=== PATIENT | female | born 1935 | race Caucasian/White ===

== ENCOUNTER 2025-06-21 18:47 | Inpatient (IN) | payer OTHER ==
[2025-06-21] MEDS ORDERED: METOCLOPRAMIDE 10 MG/2mL INJ ONE (19:35)
[2025-06-21] MEDS ORDERED: PANTOPRAZOLE 40 MG INJ ONE (19:36)
[2025-06-21] MEDS ORDERED: FAMOTIDINE 20 MG/2 ML VIAL IV ONE (19:36)
[2025-06-21] MEDS ORDERED: DIAZEPAM 10 MG/2 ML INJ SYRINGE ONE (19:36)
[2025-06-21] MEDS ORDERED: NA CHLORIDE 0.9% 100 ML ONE (19:36)
[2025-06-21] MEDS ORDERED: GLUCAGON 1 MG/VIAL ONE (19:37)
[2025-06-21 19:41] LABS: Absolute Lymphocytes (CBC) 0.8 K/uL (0.7-4.9); Hematocrit 34.7 % (36.0-45.0); Hemoglobin 12.1 g/dL (12.0-15.0); MCH 30.3 pg (27.0-35.0); MCHC 35.0 g/dL (32.0-36.0); MCV 86.7 fL (80-100); MPV 6.8 fL (7.6-11.3); Nucleated RBC Absolute Count 0.0 (0-0); Nucleated Red Blood Cells % 0.0 % (0-0); RBC Red Blood Cell Count 4.00 M/uL (3.86-4.86); White Blood Count 7.10 thou/uL (4.3-10.9)
[2025-06-21 20:07] LABS: ALT/SGPT 45.0 U/L (13-56); Albumin 3.2 g/dL (3.4-5.0); Albumin/Globulin Ratio 0.8 (1.1-1.8); Alkaline Phosphatase 67.0 U/L (45-117); Anion Gap 15.7 mEq/L (5.0-15.0); BUN Blood Urea Nitrogen 25.0 mg/dL (7-18); Globulin 4.2 g/dL (2.3-3.5); Glucose Level 128.0 mg/dL (74-106)
[2025-06-21 20:08] LABS: AST/SGOT 44.0 U/L (15-37); Potassium 4.7 mEq/L (3.5-5.1)
--- NOTE | 2025-06-21 20:25 | RAD REPORT ---
EXAM: CT Soft Tissue Neck Wo Contr INDICATION: [facility] MAIN Non contrast CT Bed Name: 8 TECHNIQUE: Helical CT examination of the neck without IV contrast. Sagittal and coronal reformations were generated. This exam was performed according to our departmental dose-optimization program, which includes automated exposure control, adjustment of the mA and/or kV according to patient size a nd/or use of iterative reconstruction technique. COMPARISON: None. FINDINGS: Noncontrast technique limits evaluation. Osseous Structures: Chronic appearing type I odontoid fracture, with corticated margins. Posterior a ngulation of the dens fragment, with angle measuring 29 degrees, with a degree of retrolisthesis measuring 5 mm. Surrounding degenerative pannus which exerts mild mass effect upon the craniocervical junction. Mucosal spaces: Nasopharynx, oropharynx, oral cavity, larynx and hypopharynx are normal. No suspiciou s masses. Epiglottis is normal in configuration. True vocal cords cords are normally situated. Piriform sinuses are well-aerated. Lymph Nodes: No pathologic appearing cervical lymph nodes. Salivary Glands: Unremarkable. Thyroid Gland: Normal Included Intracranial Structures: Normal Included Orbits: Normal Paranasal Sinuses: Predominantly clear Tympanomastoid Cavities: Normal Vascular Structures: Normal Included Lung Apices: Left upper lobe cystic lesion measuring 4.2 x 2.6 cm, better evaluated on CT ch est of the same day. IMPRESSION: No suspicious masses or adenopathy throughout the neck. Chronic appearing type I odontoid fracture, with posterior angulation and retrolisthesis and dense fr agment.
[2025-06-21] MEDS ORDERED: NA CHLORIDE 0.9% 1,000 ML ONE (20:28)
[2025-06-21] MEDS ORDERED: NA CHLORIDE 0.9% 500 ML ONE (20:29)
--- NOTE | 2025-06-21 20:31 | RAD REPORT ---
EXAMINATION: CT Thorax Wo Con CLINICAL INDICATION: Female, 89 years old. acute esophageal obstruction TECHNIQUE: Axial CT scan of the chest without intravenous contrast. Multiplanar reformats were genera kristopher and reviewed. One or more of the following dose reduction techniques were used: Automated exposure control, adjustment of the mA and/or kV according patient size, and/or iterative reconstruct ion. Unless otherwise specified, incidental findings do not require dedicated imaging follow-up. COMPARISON: No prior exam. FINDINGS: LOWER NECK: Visualized thyroid gland and soft tissues are normal. LUNGS: Cystic lesion with nodular irregularly thickened wall and septation, within the left upper lob e, based upon the upper aspect of the major fissure, measuring 4.7 x 3.4 x 5.6 cm in greatest transverse, AP, and CC dimensions. Patchy consolidative and groundglass opacities in the dependent le ft lower lobe. No other suspicious nodules. PLEURA: No pleural effusion. No pneumothorax. . MEDIASTINUM AND LYMPH NODES: No mediastinal mass or fluid collection. Normal size mediastinal, hilar, and axillary lymph nodes. Mild pericardial effusion. OSSEOUS STRUCTURES AND CHEST WALL: Intact. UPPER ABDOMEN: No significant abnormalities. IMPRESSION: Patchy airspace opacities in the dependent left lower lobe. These are concerning for pneumonitis. Cystic left upper lobe pleural-based mass measuring up to 5.6 cm, could be postinfectious although ne oplastic etiology cannot be entirely excluded. Correlation with prior imaging if available is recommended. Pulmonology consultation also recommended.
[2025-06-21] MEDS ORDERED: NACHLORIDE 0.45% 1,000 ML IV ONE (22:35)
[2025-06-21] MEDS ORDERED: ONDANSETRON 4 MG/2 ML VIAL IV PRN (22:41)
[2025-06-21] MEDS ORDERED: ACETYLCYST 20% 4 ML VIAL IH PRN (22:48)
--- NOTE | 2025-06-21 22:52 | P.HP ---
Certification for Inpatient Patient admitted to: Inpatient With expected LOS: >2 Midnights Patient will require the following post-hospital care: None Practitioner: I am a practitioner with admitting privileges, knowledge of patient current condition, hospital course, and medical plan of care. Services: Services provided to patient in accordance with Admission requirements found in Title 42 Section 412.3 of the Code of Federal Regulations Patient History Date of Service: 06/21/25 Reason for admission: Hyponatremia, PASTORA. History of Present Illness: Patient is an 89-year-old female with past medical history of atrial fibrillation currently on Eliquis 2.5 mg p.o. twice daily, recently diagnosed upper respiratory infection and completed Z-Dom, started the Z-Dom last week Thursday, and completed on Thursday, type 2 diabetes mellitus, essential hypertension. Patient brought to ER today complaining of choking after eating, and states she feels like there is an item of food stuck in her throat. Patient denies of any chest pain, shortness of breath, or abdominal pain. On admission assessment, patient with increased bilateral pulmonary congestion, nonproductive cough. Patient bilateral lungs with increased pulmonary congestion, with some crackles and rhonchi which appears to have been the residual from her recent diagnosis of upper respiratory infection. Patient with left shift of 77.1, normal WBC. BUN 25. Incidental finding of sodium 118. Course in ER: (1)CT soft tissue neck without contrast. Impression: No suspicious masses or adenopathy throughout the neck. Chronic appearing type I odontoid fracture, with posterior angulation and retrolisthesis and dens fragment. (2) CT thorax without contrast. Impression: Patchy airspace opacities in the dependent left lower lobe. These are concerning for pneumonitis. Cystic left upper lobe pleural-base mass measuring up to 5.6 cm, could be postinfectious although neoplastic etiology cannot be entirely excluded. Correlation with prior imaging if available is recommended. Pulmonary consultation is also recommended. Allergies No Known Allergies Allergy (Unverified 06/21/25 23:18) Home Medications: Albuterol Neb [Proventil 0.083% Neb Soln] 3 ml NEB DAILY 06/22/25 Albuterol Sulfate [Proair Hfa] 2 puff IN BID 06/22/25 Apixaban [Eliquis] 2.5 mg PO BID 06/22/25 Choline/Lutein/Zeaxan/Astaxan [Maculapf Softgel] 1 each PO DAILY 06/22/25 Ferrous Sulfate [Iron] 325 mg PO DAILY 06/22/25 Lisinopril [Zestril] 5 mg PO DAILY 06/22/25 Metformin HCl 1,000 mg PO DAILY 06/22/25 Multivit-Min/Iron/Folic/Lutein [Centrum Silver Women Tablet] 1 each PO DAILY 06/22/25 Potassium Chloride 10 meq PO DAILY PRN 06/22/25 Vitamin B Complex 1 each PO DAILY 06/22/25 Amox/Clavulanate [Augmentin 875-125 Tab*] 875 mg PO BID 5 Days #10 tab 06/25/25 Furosemide [Lasix] 20 mg PO DAILY PRN 30 Days #30 tab 06/25/25 Sodium Chloride Tab [Sodium Chloride*] 2 gm PO BID 30 Days #60 tab 06/25/25 Urea [Ure-Na] 15 gm PO DAILY 30 Days #1 box 06/25/25 - Past Medical/Surgical History -: Upper respiratory infection. -: Atrial fibrillation. -: Type 2 diabetes mellitus. -: Essential hypertension. Past Surgical History: Reviewed- Non-Contributory - Family History Mother -: Lung disease Notes: Emphysema Father -: Stroke, Other (see notes) Notes: DM - Social History Smoking Status: Former smoker Alcohol use: No CD- Drugs: No Caffeine use: Yes Place of Residence: Home Review of Systems 10-point ROS is otherwise unremarkable Respiratory: Cough (Nonproductive cough.), Other (Increased bilateral pulmonary congestion) Neurological: Weakness Physical Examination - Physical Exam General: Alert, Oriented x3, Cooperative HEENT: Atraumatic, Normocephalic, PERRLA, Mucous membr. moist/pink, Sclerae nonicteric Neck: Supple, 2+ carotid pulse no bruit, No LAD, Without JVD or thyroid abnormality Respiratory: Diminished, Other (Bilateral pulmonary congestion/cough) Cardiovascular: No edema, Normal pulses, No gallops, No rubs, No murmurs, Irregular heart rate/rhythm (Regular to irregular.) Capillary refill: <2 Seconds Gastrointestinal: Normal bowel sounds, Soft and benign, W/out hepatomegaly, No ascites, No tenderness, No masses, No rebound, No guarding Musculoskeletal: No clubbing, No swelling, No contractures, No erythema, No tenderness, No warmth Integumentary: No breakdown, No significant lesion, No tenderness/swelling, No warmth, No cyanosis Neurological: Normal speech, Normal strength at 5/5 x4 extr, Normal tone, Sensation intact, Normal reflexes 2+, Normal affect Lymphatics: No axilla or inguinal lymphadenopathy - Studies Laboratory Data (last 24 hrs) 06/21/25 06/21/25 19:33 19:33 WBC 7.10 Hgb 12.1 Hct 34.7 L Plt Count 273 Sodium 118 L* Potassium 4.7 BUN 25 H Creatinine 0.74 Glucose 128 H Total Bilirubin 0.4 AST 44 H ALT 45 Alkaline Phosphatase 67 Female Exam - Breasts Breasts: Normal configuration Assessment and Plan - Plan Patient is an 89-year-old female who initially reported to the ER due to choking after eating, and thought there was an item stuck in her esophagus. CT impression no foreign body noted in patient esophagus. Incidental finding of sodium 118, with PASTORA. (1)Hyponatremia of 118/ PASTORA. Patient initially was started on IV NS in the ER. -Order 1/2 NS at 50 mL/ hr. The goal is to gradually increase patient sodium and not rapidly increased due to the risk potential cerebral edema. -Order follow-up CMP in the morning. (2)Chronic type 2 diabetes mellitus. -Order A1c. -Moderate sliding scale coverage/ACHS.. (3)Chronic atrial fibrillation. -Continue on Eliquis 2.5 mg p.o. twice daily. (4)Increased pulmonary congestion and nonproductive cough. Patient recently diagnosed with upper respiratory infection and completed course of Z-Dom, and appears to be residual symptoms,but patient has a left shift. -Order Levaquin 250 mg daily dose adjusted by pharmacy. (5)Explained the entire treatment plan to the patient, and family present at bedside, solicit questions answered and voiced understanding. Discharge Plan: Home Plan to discharge in: 72 Hours - Advance Directives Does patient have a Living Will: No Does patient have a Durable POA for Healthcare: No - Code Status/Comfort Care Code Status: Full Code Critical Care: No Time Spent Managing Pts Care (In Minutes): 55
[2025-06-22] MEDS ORDERED: IPRATROPIUM BROM 0.5MG/2.5ML ONE (00:45)
[2025-06-22] MEDS ORDERED: ALBUTEROL 2.5 MG/3 ML NEB SOL ONE (00:45)
--- NOTE | 2025-06-22 00:56 | EDPHYS ---
Physician Documentation [facility] Name: Heather Taylor Age: 89 yrs Sex: Female : 1935 Arrival Date: 06/21/2025 Time: 18:47 Bed 8 Private MD: ED Physician Lauri Cespedes HPI: 06/21 19:12 This 89 yrs old Female presents to ER via Unassigned with complaints of sp4 Choked/Choking. 19:20 89-year-old female presents after acute choking on a hot dog and some other food at sp4 home. Occurring 1 hour ago. Patient reports she could not swallow at first and now she is able to swallow some and tolerated some soda. Patient reports significant discomfort choking cough and sputum production. No previous esophageal obstruction.. Historical: - Allergies: 19:42 No Known Allergies; ph - Home Meds: 19:42 Unable to obtain [Active]; ph - PMHx: 19:42 Diabetes mellitus; ph - PSHx: 19:42 Unable to Obtain; ph - Immunization history:: Adult Immunizations up to date. - Infectious Disease History:: Denies. - Social history:: Smoking status: Patient denies any tobacco usage or history of. Patient/guardian denies using alcohol, street drugs. ROS: 19:21 Constitutional: Negative for fever, chills, and weight loss, positive acute choking sp4 positive acute dysphagia positive sputum salivation and throat discomfort. 19:21 All other systems are negative, Exam: 19:21 Constitutional: Thin frail elderly female, significant discomfort, significant sputum sp4 production, coughing on examination. Head/Face: Normocephalic, atraumatic. Eyes: Pupils equal round and reactive to light, extra-ocular motions intact. Lids and lashes normal. Conjunctiva and sclera are not injected. Cornea within normal limits. Periorbital areas with no swelling, redness, or edema. ENT: Nares patent. No nasal discharge, no septal abnormalities noted. Tympanic membranes are normal and external auditory canals are clear. Oropharynx with no redness, swelling, or masses, exudates, or evidence of obstruction, uvula midline. Mucous membranes moist. Neck: Trachea midline, no thyromegaly or masses palpated, and no cervical lymphadenopathy. Supple, full range of motion without nuchal rigidity, or vertebral point tenderness. Chest/axilla: Normal chest wall appearance and motion. Nontender with no deformity. No lesions are appreciated. Cardiovascular: Regular rate and rhythm with a normal S1 and S2. No gallops, murmurs, or rubs. No pulse deficits. Respiratory: Lungs have equal breath sounds bilaterally, clear to auscultation and percussion. No rales, rhonchi or wheezes noted. No increased work of breathing, no retractions or nasal flaring. Abdomen/GI: Soft, with normal bowel sounds. No distension or tympany. No guarding or rebound. No evidence of tenderness throughout. Back: No spinal tenderness. No costovertebral tenderness. Skin: Warm, dry with normal turgor. Normal color with no rashes, no lesions, and no evidence of cellulitis. MS/ Extremity: Pulses equal, no cyanosis. Neurovascular intact. Full, normal range of motion. Neuro: Awake and alert, GCS 15, oriented to person, place, time, and situation. Cranial nerves II-XII grossly intact. Motor strength 5/5 in all extremities. Sensory grossly intact. Psych: Awake, alert, with orientation to person, place and time. Behavior, mood, and affect are within normal limits Vital Signs: 19:00 BP 133 / 67; Pulse 84; Resp 18; Temp 97.1; Pulse Ox 95% ; Pain 5/10; ph 19:59 BP 116 / 56; Pulse 81; Resp 18; Temp 97.1; Pulse Ox 96% on 2 lpm NC; Pain 0/10; ph 20:40 BP 116 / 56; Pulse 75; Resp 17; Temp 97.1; Pulse Ox 97% ; Pain 0/10; bm8 21:36 BP 117 / 66; Pulse 77; Resp 18; Temp 97.1; Pulse Ox 98% ; Pain 0/10; bm8 22:57 BP 118 / 60; Pulse 69; Resp 18; Temp 97.2; Pulse Ox 98% on 2 lpm NC; Pain 0/10; bm8 06/22 00:50 BP 128 / 67; Pulse 69; Resp 18; Temp 97.5; Pulse Ox 94% ; Pain 0/10; bm8 06/21 19:00 Pain Scale: Adult ph 19:59 Pain Scale: Adult ph 20:40 Pain Scale: Adult bm8 21:36 Pain Scale: Adult bm8 22:57 Pain Scale: Adult bm8 06/22 00:50 Pain Scale: Adult bm8 Myah Coma Score: 06/21 19:21 Eye Response: spontaneous(4). Motor Response: obeys commands(6). Verbal Response: sp4 oriented(5). Total: 15. 19:44 Eye Response: spontaneous(4). Motor Response: obeys commands(6). Verbal Response: ph oriented(5). Total: 15. 19:59 Eye Response: to pain(2). Motor Response: localizes pain(5). Verbal Response: ph confused(4). Total: 11. 20:40 Eye Response: spontaneous(4). Motor Response: obeys commands(6). Verbal Response: bm8 oriented(5). Total: 15. 21:36 Eye Response: spontaneous(4). Motor Response: obeys commands(6). Verbal Response: bm8 oriented(5). Total: 15. 06/22 00:50 Eye Response: spontaneous(4). Motor Response: obeys commands(6). Verbal Response: bm8 oriented(5). Total: 15. MDM: 06/21 20:17 Medical Screening Exam initiated sp4 20:37 ED course: EXAMINATION: CT Thorax Wo Con CLINICAL INDICATION: Female, 89 years old. sp4 acute esophageal obstruction TECHNIQUE: Axial CT scan of the chest without intravenous contrast. Multiplanar reformats were generated and reviewed. One or more of the following dose reduction techniques were used: Automated exposure control, adjustment of the mA and/or kV according patient size, and/or iterative reconstruction. Unless otherwise specified, incidental findings do not require dedicated imaging fo llow-up. COMPARISON: No prior exam. FINDINGS: LOWER NECK: Visualized thyroid gland and soft tissues are normal. LUNGS: Cystic lesion with nodular irregularly thickened wall and septation, within the left upper lobe, based upon the upper aspect of the major fissure, measuring 4.7 x 3.4 x 5.6 cm in greatest transverse, AP, and CC dimensions. Patchy consolidative and groundglass opacities in the dependent left lower lobe. No other suspicious nodules. PLEURA: No pleural effusion. No pneumothorax. . MEDIASTINUM AND LYMPH NODES: No mediastinal mass or fluid collection. Normal size mediastinal, hilar, and axillary lymph nodes. Mild pericardial effusion. OSSEOUS STRUCTURES AND CHEST WALL: Intact. UPPER ABDOMEN: No significant abnormalities. IMPRESSION: Patchy airspace opacities in the dependent left lower lobe. These are concerning for pneumonitis. Cystic left upper lobe pleural-based mass measuring up to 5.6 cm, could be postinfectious although neoplastic etiology cannot be entirely excluded. Correlation with prior imaging if available is recommended. Pulmonology consultation also recommended.. ED course: RADIOLOGYSERVICES REPORT Name: NELLIE TAYLOR Acct Number: [id number] :1935 Age:89 Sex:F Ord Phys: Lauri Cespedes MD Unit Number: [id number] [facility] Care Dr: NONE Status: REG ER ER Exam Date: 06/21/25 EXAM: CT Soft Tissue Neck Wo Contr INDICATION: [facility] MAIN Non contrast CT Bed Name: 8 TECHNIQUE: Helical CT examination of the neck without IV contrast. Sagittal and coronal reformations were generated. This exam was performed according to our departmental dose-optimization program, which includes automated exposure control, adjustment of the mA and/or kV according to patient size and/or use of iterative reconstruction technique. COMPARISON: None. FINDINGS: Noncontrast technique limits evaluation. Osseous Structures: Chronic appearing type I odontoid fracture, with corticated margins. Posterior angulation of the dens fragment, with angle measuring 29 degrees, with a degree of retrolisthesis measuring 5 mm. Surrounding degenerative pannus which exerts mild mass effect upon the craniocervical junction. Mucosal spaces: Nasopharynx, oropharynx, oral cavity, larynx and hypopharynx are normal. No suspicious masses. Epiglottis is normal in configuration. True vocal cords cords are normally situated. Piriform sinuses are well-aerated. Lymph Nodes: No pathologic appearing cervical lymph nodes. Salivary Glands: Unremarkable. Thyroid Gland: Normal Included Intracranial Structures: Normal Included Orbits: Normal Paranasal Sinuses: Predominantly clear Tympanomastoid Cavities: Normal Vascular Structures: Normal Included Lung Apices: Left upper lobe cystic lesion measuring 4.2 x 2.6 cm, better evaluated on CT chest of the same day. IMPRESSION: No suspicious masses or adenopathy throughout the neck. Chronic appearing type I odontoid fracture, with posterior angulation and retrolisthesis and dense fragment. . 20:47 ED course: CT neck - COMPARISON: None. FINDINGS: Noncontrast technique limits sp4 evaluation. Osseous Structures: Chronic appearing type I odontoid fracture, with corticated margins. Posterior angulation of the dens fragment, with angle measuring 29 degrees, with a degree of retrolisthesis measuring 5 mm. Surrounding degenerative pannus which exerts mild mass effect upon the craniocervical junction. Mucosal spaces: Nasopharynx, oropharynx, oral cavity, larynx and hypopharynx are normal. No suspicious masses. Epiglottis is normal in configuration. True vocal cords cords are normally situated. Piriform sinuses are well-aerated. Lymph Nodes: No pathologic appearing cervical lymph nodes. Salivary Glands: Unremarkable. Thyroid Gland: Normal Included Intracranial Structures: Normal Included Orbits: Normal Paranasal Sinuses: Predominantly clear Tympanomastoid Cavities: Normal Vascular Structures: Normal Included Lung Apices: Left upper lobe cystic lesion measuring 4.2 x 2.6 cm, better evaluated on CT chest of the same day. 21:33 ED course: CT revealed no signs of esophageal food impaction.. sp4 21:34 Differential diagnosis: Anxiety Reaction asthma, Bronchitis CHF exacerbation, Chronic sp4 Obstructive Pulmonary Disease pneumonia. Data reviewed: vital signs, nurses notes, EMS record, lab test result(s), EKG, radiologic studies, plain films. 06/22 01:14 ED course: Hyponatremia will be treated with saline infusion in ICU. Left upper lung sp4 cystic lesion --we have advised patient's family to have a follow-up with remodeler at her town. I recommended repeat CT in 6 to 12 months. Chronic odontoid process fracture -advised follow-up with neurosurgery. Additionally advised fall prevention at home.. 06/21 19:20 Order name: CBC with Diff; Complete Time: 20:17 sp4 06/21 19:20 Order name: CMP sp4 06/21 20:45 Order name: Urine Creatinine sp4 06/21 20:45 Order name: Urine Osmolality sp4 06/21 20:45 Order name: Urine Sodium Random sp4 06/21 20:45 Order name: Urine Potassium Random sp4 06/21 20:45 Order name: UA W/ Microscopic sp4 06/22 00:57 Order name: CBC with Automated Diff EDMS 06/22 00:57 Order name: CBC with Automated Diff EDMS 06/22 00:57 Order name: CBC with Automated Diff EDMS 06/22 00:57 Order name: Comprehensive Metabolic Panel EDMS 06/22 00:57 Order name: Comprehensive Metabolic Panel EDMS 06/22 00:57 Order name: Comprehensive Metabolic Panel EDMS 06/22 00:57 Order name: Magnesium EDMS 06/22 00:57 Order name: Magnesium EDMS 06/22 00:57 Order name: Magnesium EDMS 06/21 19:20 Order name: CT Chest Wo Con sp4 06/21 19:28 Order name: Soft Tissue Neck Wo Contr EDMS 06/21 19:19 Order name: NPO; Complete Time: 19:46 sp4 06/21 19:20 Order name: IV Saline Lock; Complete Time: 19:46 sp4 06/21 19:20 Order name: Labs collected and sent; Complete Time: 19:46 sp4 Administered Medications: 06/21 22:56 Discontinued: ns 0.9% 1000 ml IV at 125 ml/hr once; to be given as a bolus over 60 bm8 minutes 19:58 Drug: Famotidine IVP 20 mg IVP once; dilute with 10 mL 0.9% NaCl; give over 2 minutes ph Route: IVP; Site: right forearm; 21:37 Follow up: Response: No adverse reaction bm8 19:59 Drug: Glucagon IVP 1 mg IVP once Route: IVP; Site: right forearm; ph 21:38 Follow up: Response: No adverse reaction bm8 19:59 Drug: Diazepam IVP 2 mg IVP once Route: IVP; Site: right forearm; ph 21:38 Follow up: Response: No adverse reaction bm8 19:59 Drug: metoCLOPramide IVP 10 mg IVP once; over 1 to 2 minutes Route: IVP; Site: right ph forearm; 21:38 Follow up: Response: No adverse reaction bm8 19:59 Drug: Pantoprazole IVP 40 mg IVP once Route: IVP; Site: right forearm; ph 21:38 Follow up: Response: No adverse reaction bm8 20:40 Drug: NS 0.9% IV 500 ml 500 ml IV at 1 bolus once; to be given as a bolus over 30 bm8 minutes Volume: 500 ml; Route: IV; Rate: 1 bolus; Site: right forearm; 21:37 Follow up: Response: No adverse reaction; IV Status: Completed infusion bm8 20:40 Drug: NS 0.9% IV 1000 ml IV at 125 ml/hr once; to be given as a bolus over 60 minutes bm8 Route: IV; Rate: 125 ml/hr; Site: right forearm; 23:17 Follow up: Response: No adverse reaction; IV Status: Order to discontinue infusion bm8 Disposition: 21:14 Critical Care:. sp4 Disposition Summary: 06/21/25 21:33 Hospitalization Ordered Notes: Provider: Kev Keene sp4 Problem: new sp4 Symptoms: have improved sp4 Bed/Room Type: Standard sp4 Hospitalization Status: Inpatient Admission(06/21/25 21:42) sp4 Location: Intensive Care Unit(06/21/25 21:42) sp4 Condition: Guarded(06/21/25 21:42) sp4 Room Assignment: 7-(06/22/25 01:01) rv1 Diagnosis - Worsening right pleural effusion, volume overload, end-stage renal disease on sp4 hemodialysis, intractable vomiting - Acute hyponatremia, acute dysphagia, generalized weakness. sp4 Forms: - Medication Reconciliation Form sp4 - SBAR form sp4 - Leadership Thank You Letter sp4 Critical care time excluding procedures: 21:14 Critical care time: Bedside Care: 36 minutes, Consultation: 12 minutes, Family sp4 Intervention: 12 minutes. Total time: 60 minutes Signatures: Dispatcher [employer] EDAmber Vega RN RN Jeaneth Cullen rv1 Lauri Cespedes MD MD sp4 Dakota Boss RN RN bm8 Corrections: (The following items were deleted from the chart) 19:20 19:20 CBC+H.LAB.BRZ ordered. EDMS EDMS 19:20 19:20 COMPREHENSIVE METABOLIC PANEL+C.LAB.BRZ ordered. EDMS EDMS 19:28 19:21 Soft Tissue Neck W/Contr+CT.RAD.BRZ ordered. EDMS EDMS 19:43 19:42 PMHx: Unable to Obtain; ph ph 21:36 21:33 Acute pulmonary edema sp4 sp4 21:37 21:33 ED course: Chest X ray revealed - Bibasilar pleural-parenchymal opacities with sp4 mild interval progression of the left base, findings could relate to pulmonary edema or pneumonitis.. sp4 21:37 21:34 ECG was reviewed by the Attending Physician. EKG at 2040 normal sinus rhythm rate sp4 100. Otherwise normal. sp4 21:37 20:40 Rate is 100 beats/min. Rhythm is regular, Sinus Rhythm. QRS [place] is Normal. [place] sp4 interval is normal. QRS interval is normal. QT interval is normal. No Q waves. T waves are Normal. No ST changes noted. Clinical impression: No evidence of ischemia. Interpreted by me. Reviewed by me. sp4 21:38 21:34 ECG was reviewed by the Attending Physician. EKG at 2040 normal sinus rhythm rate sp4 100. Otherwise normal. sp4 21:42 21:33 Observation sp4 sp4 21:42 21:33 Telemetry/MedSurg (observation) sp4 sp4 21:42 21:33 Fair sp4 sp4 21:42 21:33 sp4 sp4 06/22 01:01 06/21 21:42 sp4 rv1
--- NOTE | 2025-06-22 00:56 | ER ---
Nurse's Notes [facility] Name: Heather Hernández Age: 89 yrs Sex: Female : 1935 Arrival Date: 06/21/2025 Time: 18:47 Bed 8 Private MD: Diagnosis: Acute hyponatremia, acute dysphagia, generalized weakness. Presentation: 06/21 19:00 Chief complaint: Patient states: I was eating some apples and chili dogs for dinner, ph now something feels like its stuck in my throat and I am highly uncomfrtable. 19:00 Coronavirus screen: At this time, the client does not indicate any symptoms associated ph with coronavirus-19. Ebola Screen: Patient negative for fever greater than or equal to 101.5 degrees Fahrenheit, and additional compatible Ebola Virus Disease symptoms Patient denies exposure to infectious person. Patient denies travel to an Ebola-affected area in the 21 days before illness onset. No symptoms or risks identified at this time. Initial Sepsis Screen: Does the patient meet any 2 criteria? No. Patient's initial sepsis screen is negative. Does the patient have a suspected source of infection? No. Patient's initial sepsis screen is negative. Risk Assessment: Do you want to hurt yourself or someone else? Patient reports no desire to harm self or others. Onset of symptoms was June 21, 2025 at 18:00. 19:00 Method Of Arrival: Ambulatory 19:00 Acuity: BETHANY 3 ph Triage Assessment: 19:00 General: Appears uncomfortable, Behavior is cooperative, appropriate for age, anxious. ph 19:00 Pain: Complains of pain in face, thyroid cartilage, right aspect of thyroid, left ph aspect of thyroid and suprasternal notch Pain currently is 5 out of 10 on a pain scale. EENT: Throat is clear bilaterally with gag reflex present, Reports possible FB in throat. Neuro: No deficits noted. Level of Consciousness is awake, alert, obeys commands, Oriented to person, place, time, situation, Appropriate for age. Cardiovascular: Denies chest pain, Capillary refill < 3 seconds in bilateral fingers Patient's skin is warm and dry. Respiratory: Airway is patent Respiratory effort is even, unlabored, Respiratory pattern is regular, symmetrical, Breath sounds are clear bilaterally. GI: Abdomen is flat, Bowel sounds present X 4 quads. : Derm: Musculoskeletal: No signs and/or symptoms reported regarding the musculoskeletal system. Historical: - Allergies: 19:42 No Known Allergies; ph - Home Meds: 19:42 Unable to obtain [Active]; ph - PMHx: 19:42 Diabetes mellitus; ph - PSHx: 19:42 Unable to Obtain; ph - Immunization history:: Adult Immunizations up to date. - Infectious Disease History:: Denies. - Social history:: Smoking status: Patient denies any tobacco usage or history of. Patient/guardian denies using alcohol, street drugs. Screenin:44 [facility] ED Fall Risk Assessment (Adult) History of falling in the last 3 months, ph including since admission No falls in past 3 months (0 pts) Confusion or Disorientation No (0 pts) Intoxicated or Sedated No (0 pts) Impaired Gait No (0 pts) Mobility Assist Device Used No (0 pt) Altered Elimination No (0 pt) Score/Fall Risk Level 0 - 2 = Low Risk Oriented to surroundings, Maintained a safe environment, Educated pt \T\ family on fall prevention, incl call for assistance when getting out of bed, Assessed \T\ reinforced patient's understanding of fall precautions, Hourly rounding (assess needs \T\ fall precautionary measures) done, Used ambulatory aids as needed (educated on \T\ assisted with), Used gait belt as appropriate. Abuse screen: Denies threats or abuse. Nutritional screening: No deficits noted. Tuberculosis screening: No symptoms or risk factors identified. Assessment: 19:44 Reassessment: see triage assessment, pt to CT. ph 19:59 General: Appears in no apparent distress. comfortable, Behavior is calm, cooperative, ph appropriate for age. Pain: Denies pain. Neuro: No deficits noted. Level of Consciousness is lethargic, pt is sleeping. 20:40 Reassessment: Patient appears in no apparent distress at this time. No changes from bm8 previously documented assessment. Patient and/or family updated on plan of care and expected duration. Pain level reassessed. pt placed on purwic Patient denies pain at this time. Patient states feeling better. 21:36 Reassessment: Patient appears in no apparent distress at this time. No changes from bm8 previously documented assessment. Patient and/or family updated on plan of care and expected duration. Pain level reassessed. 22:57 Reassessment: Patient appears in no apparent distress at this time. No changes from bm8 previously documented assessment. Patient and/or family updated on plan of care and expected duration. Pain level reassessed. Patient denies pain at this time. Patient states feeling better. 06/22 00:50 Reassessment: Patient appears in no apparent distress at this time. Patient and/or bm8 family updated on plan of care and expected duration. Pain level reassessed. Patient is alert, oriented x 3, equal unlabored respirations, skin warm/dry/pink. assisted pt with elimination needs to bed side commode. Linen changed. pt is awake alert and ambulatory with assist. denies pain. Patient denies pain at this time. Patient states feeling better. Vital Signs: 06/21 19:00 BP 133 / 67; Pulse 84; Resp 18; Temp 97.1; Pulse Ox 95% ; Pain 5/10; ph 19:59 BP 116 / 56; Pulse 81; Resp 18; Temp 97.1; Pulse Ox 96% on 2 lpm NC; Pain 0/10; ph 20:40 BP 116 / 56; Pulse 75; Resp 17; Temp 97.1; Pulse Ox 97% ; Pain 0/10; bm8 21:36 BP 117 / 66; Pulse 77; Resp 18; Temp 97.1; Pulse Ox 98% ; Pain 0/10; bm8 22:57 BP 118 / 60; Pulse 69; Resp 18; Temp 97.2; Pulse Ox 98% on 2 lpm NC; Pain 0/10; bm8 06/22 00:50 BP 128 / 67; Pulse 69; Resp 18; Temp 97.5; Pulse Ox 94% ; Pain 0/10; bm8 06/21 19:00 Pain Scale: Adult ph 19:59 Pain Scale: Adult ph 20:40 Pain Scale: Adult bm8 21:36 Pain Scale: Adult bm8 22:57 Pain Scale: Adult bm8 06/22 00:50 Pain Scale: Adult bm8 Myah Coma Score: 06/21 19:21 Eye Response: spontaneous(4). Motor Response: obeys commands(6). Verbal Response: sp4 oriented(5). Total: 15. 19:44 Eye Response: spontaneous(4). Motor Response: obeys commands(6). Verbal Response: ph oriented(5). Total: 15. 19:59 Eye Response: to pain(2). Motor Response: localizes pain(5). Verbal Response: ph confused(4). Total: 11. 20:40 Eye Response: spontaneous(4). Motor Response: obeys commands(6). Verbal Response: bm8 oriented(5). Total: 15. 21:36 Eye Response: spontaneous(4). Motor Response: obeys commands(6). Verbal Response: bm8 oriented(5). Total: 15. 06/22 00:50 Eye Response: spontaneous(4). Motor Response: obeys commands(6). Verbal Response: bm8 oriented(5). Total: 15. ED Course: 06/21 18:49 Patient arrived in ED. im 18:51 Fernie Bergeron, CARLOS is Primary Nurse. bp 19:00 Arm band placed on. ph 19:12 Lauri Cespedes MD is Attending Physician. sp4 19:26 Triage completed. ph 19:39 Primary Nurse role handed off by Fernie Bergeron, RN rv1 19:44 Patient has correct armband on for positive identification. Bed in low position. Call ph light in reach. Side rails up X 1. Adult w/ patient. Client placed on continuous cardiac and pulse oximetry monitoring. NIBP monitoring applied. Pulse ox on. NIBP on. Door closed. Noise minimized. Warm blanket given. Pillow given. Verbal reassurance given. Head of bed elevated. 19:44 No provider procedures requiring assistance completed. Initial lab(s) drawn, by mn, ph sent to lab. Inserted saline lock: 20 gauge in right forearm, using aseptic technique. Blood collected. Flushed with 10 mL NS. Patient maintains SpO2 saturation greater than 95% on room air. 19:48 CT Chest Wo Con In Process Unspecified. EDMS 19:48 Soft Tissue Neck Wo Contr In Process Unspecified. EDMS 19:58 Amber Fletcher, CARLOS is Primary Nurse. ph 21:32 Kev Keene MD is Hospitalizing Provider. sp4 21:36 Provided Education on: need for admission. bm8 21:36 Patient admitted, IV remains in place. bm8 Administered Medications: 22:56 Discontinued: ns 0.9% 1000 ml IV at 125 ml/hr once; to be given as a bolus over 60 bm8 minutes 19:58 Drug: Famotidine IVP 20 mg IVP once; dilute with 10 mL 0.9% NaCl; give over 2 minutes ph Route: IVP; Site: right forearm; 21:37 Follow up: Response: No adverse reaction bm8 19:59 Drug: Glucagon IVP 1 mg IVP once Route: IVP; Site: right forearm; ph 21:38 Follow up: Response: No adverse reaction bm8 19:59 Drug: Diazepam IVP 2 mg IVP once Route: IVP; Site: right forearm; ph 21:38 Follow up: Response: No adverse reaction bm8 19:59 Drug: metoCLOPramide IVP 10 mg IVP once; over 1 to 2 minutes Route: IVP; Site: right ph forearm; 21:38 Follow up: Response: No adverse reaction bm8 19:59 Drug: Pantoprazole IVP 40 mg IVP once Route: IVP; Site: right forearm; ph 21:38 Follow up: Response: No adverse reaction bm8 20:40 Drug: NS 0.9% IV 500 ml 500 ml IV at 1 bolus once; to be given as a bolus over 30 bm8 minutes Volume: 500 ml; Route: IV; Rate: 1 bolus; Site: right forearm; 21:37 Follow up: Response: No adverse reaction; IV Status: Completed infusion bm8 20:40 Drug: NS 0.9% IV 1000 ml IV at 125 ml/hr once; to be given as a bolus over 60 minutes bm8 Route: IV; Rate: 125 ml/hr; Site: right forearm; 23:17 Follow up: Response: No adverse reaction; IV Status: Order to discontinue infusion bm8 Medication: 19:44 VIS not applicable for this client. ph Outcome: 21:33 Decision to Hospitalize by Provider. sp4 23:15 Admitted to ICU accompanied by nurse, via stretcher, room icu 7, with oxygen, on bm8 monitor, with chart, Report called to CARLOS Saez 23:15 Condition: stable 23:15 Instructed on follow up and referral plans. the need for admit, Demonstrated understanding of instructions, follow-up care, medications, 06/22 01:06 Patient left the ED. lg3 Signatures: Dispatcher [facility]Lovel[facility] Medical CenterAmber Vega RN RN Fernie Bergeron RN RN bp Able, Lacie, RN RN lg3 Jeaneth Herrera rv1 Lauri Cespedes MD MD sp4 Arabella Laboy Brad, RN RN bm8 Corrections: (The following items were deleted from the chart) 06/21 19:42 19:00 Pulse 84bpm; Resp 18bpm; Pulse Ox 95%; Temp 97.1F; Pain 5/10, Adult; ph ph 19:43 19:42 PMHx: Unable to Obtain; ph ph 23:17 22:56 Response: No adverse reaction roxanne oliveira
[2025-06-22] MEDS: ALBUTEROL 2.5 MG/3 ML NEB SOL NEB SCH (01:08)
[2025-06-22] MEDS: IPRATROPIUM BROM 0.5MG/2.5ML NEB SCH (01:08)
[2025-06-22] MEDS: NACHLORIDE 0.45% 1,000 ML IV SCH (01:25)
[2025-06-22] MEDS ORDERED: FUROSEMIDE 20 MG TABLET PO PRN (05:14)
[2025-06-22 05:20] LABS: Absolute Lymphocytes (CBC) 1.3 K/uL (0.7-4.9); Hematocrit 32.9 % (36.0-45.0); Hemoglobin 11.6 g/dL (12.0-15.0); MCH 30.7 pg (27.0-35.0); MCHC 35.4 g/dL (32.0-36.0); MCV 86.6 fL (80-100); MPV 6.8 fL (7.6-11.3); Nucleated RBC Absolute Count 0.0 (0-0); Nucleated Red Blood Cells % 0.1 % (0-0); RBC Red Blood Cell Count 3.79 M/uL (3.86-4.86); White Blood Count 7.20 thou/uL (4.3-10.9)
[2025-06-22 05:47] LABS: ALT/SGPT 38.0 U/L (13-56); AST/SGOT 31.0 U/L (15-37); Albumin 2.8 g/dL (3.4-5.0); Albumin/Globulin Ratio 0.8 (1.1-1.8); Alkaline Phosphatase 56.0 U/L (45-117); Anion Gap 8.8 mEq/L (5.0-15.0); BUN Blood Urea Nitrogen 16.0 mg/dL (7-18); Globulin 3.4 g/dL (2.3-3.5); Glucose Level 87.0 mg/dL (74-106); Magnesium 1.4 mg/dL (1.6-2.4); Potassium 3.8 mEq/L (3.5-5.1)
[2025-06-22] MEDS: Magnesium Sulfate 2gm IVPB 2 G/50 ML BAG IV ONE (06:31)
[2025-06-22 07:25] LABS: Sqamous Epithelial None Seen /HPF (None Seen); Urine Micro Reflex YN NO BILL MICROSCOPIC
[2025-06-22 07:29] LABS: UR POTASSIUM 13.0 mmol/L (20-40); UR SODIUM 47.0 mmol/L (27-287)
[2025-06-22] MEDS: POTASS/SODIUM PHOSPHATE 1 PKT POWD.PACK PO SCH (08:08)
[2025-06-22] MEDS: METFORMIN HCL 500 MG TAB PO SCH (08:08)
[2025-06-22] MEDS: APIXABAN 2.5 MG TABLET PO SCH (08:09)
[2025-06-22] MEDS: FERROUS SULFATE 325 MG TAB PO SCH (08:09)
[2025-06-22] MEDS: levoFLOXacin 500 MG TAB PO ONE (08:09)
[2025-06-22] MEDS ORDERED: DOXYCYCLINE 100 MG CAP PO SCH (09:00)
[2025-06-22] MEDS ORDERED: POTASSIUM 25 MEQ EFFERV TAB PO ONE (09:00)
[2025-06-22 11:13] LABS: Anion Gap 12.9 mEq/L (5.0-15.0); BUN Blood Urea Nitrogen 12.0 mg/dL (7-18); Glucose Level 166.0 mg/dL (74-106); Potassium 3.9 mEq/L (3.5-5.1)
[2025-06-22] MEDS ORDERED: POTASSIUM CL SA 10 MEQ TAB PO PRN (11:35)
[2025-06-22] MEDS: APIXABAN 5 MG TABLET PO SCH (11:36)
[2025-06-22 15:10] LABS: Anion Gap 11.4 mEq/L (5.0-15.0); BUN Blood Urea Nitrogen 12.0 mg/dL (7-18); Glucose Level 112.0 mg/dL (74-106); Potassium 4.4 mEq/L (3.5-5.1)
--- NOTE | 2025-06-22 15:11 | P.PN ---
Subjective Date of Service: 06/22/25 Chief Complaint: Hyponatremia, PASTORA. Patient is tolerating diet. She has been coughing intermittently. She reports a sensation of food stuck in her throat has gotten significantly better. Patient noted to have severe hyponatremia, sodium level has improved since admission. No recorded fever. Physical Examination - Vital Signs Temperature: 98.1 F Blood Pressure: 109/50 Pulse: 74 Respirations: 17 Pulse Ox (%): 94 - Studies Laboratory Data (last 24 hrs) 06/21/25 06/21/25 19:33 19:33 WBC 7.10 Hgb 12.1 Hct 34.7 L Plt Count 273 Sodium 118 L* Potassium 4.7 BUN 25 H Creatinine 0.74 Glucose 128 H Total Bilirubin 0.4 AST 44 H ALT 45 Alkaline Phosphatase 67 Assessment And Plan - Plan Physical examination General: Alert and oriented x 3, NAD, HEENT: Conjunctiva not pale, anicteric sclera Neck: Supple, no elevated JVD Heart: Heart sounds 1 and 2 normal, regular rhythm, normal rate, no pedal edema Lungs: Clear to auscultation bilaterally, adequate breath sounds bilaterally, no rhonchi or crackles. Abdomen: Soft, nondistended, nontender, normal bowel sounds. Extremities: No tenderness, no deformity Skin: Normal skin turgor, no rash, no nodules or ulcers. Neuro: No focal motor deficit. Normal speech. Psychiatry: Normal mood, no agitation. Diagnosis Hyponatremia Choking sensation/suspected dysphagia Aspiration pneumonia Chronic atrial fibrillation Pulmonary cystic mass. Diabetes mellitus type 2 Plan: Hyponatremia Euvolemic. Home medications reviewed and the only medication that can cause hyponatremia is lisinopril however patient is only on a low-dose 2.5 mg daily. Hold lisinopril Check serum osmolality and urine osmolality Changed IV half NS to IV NS Nephrology consult Monitor BMP. Choking sensation/suspected dysphagia Aspiration pneumonitis Speech therapy evaluation Continue Levaquin, and IV Zosyn to cover anaerobes Pulmonary cystic mass Pulmonary consult Chronic atrial fibrillation Continue Eliquis. Resume home dose of amiodarone 200 mg daily. Diabetes mellitus type 2 Blood sugar readings within normal range for now Continue metformin DVT prophylaxis: On Eliquis Advanced directive: Full code
[2025-06-22] MEDS: NA CHLORIDE 0.9% 1,000 ML IV SCH (15:57)
[2025-06-22] MEDS: AMIODARONE HCL 200 MG TAB PO SCH (15:57)
[2025-06-22] MEDS: PIPER TAZO 3.375 GM in NA CHLORIDE 0.9% 100 ML IV SCH (15:57)
[2025-06-22 20:38] LABS: Anion Gap 10.3 mEq/L (5.0-15.0); BUN Blood Urea Nitrogen 12.0 mg/dL (7-18); Glucose Level 152.0 mg/dL (74-106); Potassium 4.3 mEq/L (3.5-5.1)
[2025-06-23 00:58] LABS: Anion Gap 8.2 mEq/L (5.0-15.0); BUN Blood Urea Nitrogen 10.0 mg/dL (7-18); Glucose Level 104.0 mg/dL (74-106); Potassium 4.2 mEq/L (3.5-5.1)
[2025-06-23 06:00] LABS: Absolute Lymphocytes (CBC) 1.1 K/uL (0.7-4.9); Hematocrit 34.2 % (36.0-45.0); Hemoglobin 12.2 g/dL (12.0-15.0); MCH 30.9 pg (27.0-35.0); MCHC 35.6 g/dL (32.0-36.0); MCV 86.7 fL (80-100); MPV 7.1 fL (7.6-11.3); Nucleated RBC Absolute Count 0.0 (0-0); Nucleated Red Blood Cells % 0.1 % (0-0); RBC Red Blood Cell Count 3.94 M/uL (3.86-4.86); White Blood Count 5.80 thou/uL (4.3-10.9)
[2025-06-23 06:27] LABS: ALT/SGPT 38.0 U/L (13-56); Albumin 2.7 g/dL (3.4-5.0); Albumin/Globulin Ratio 0.8 (1.1-1.8); Alkaline Phosphatase 58.0 U/L (45-117); Anion Gap 10.1 mEq/L (5.0-15.0); BUN Blood Urea Nitrogen 8.0 mg/dL (7-18); Globulin 3.3 g/dL (2.3-3.5); Glucose Level 98.0 mg/dL (74-106)
[2025-06-23 06:34] LABS: AST/SGOT 30.0 U/L (15-37); Magnesium 1.5 mg/dL (1.6-2.4); Potassium 4.1 mEq/L (3.5-5.1)
[2025-06-23] MEDS: Magnesium Sulfate 2gm IVPB 2 G/50 ML BAG IV ONE (08:53)
[2025-06-23] MEDS: Multi-VIT(Centravite Senior) 1 TAB TAB PO SCH (08:54)
[2025-06-23] MEDS: VITAMIN B COMPLEX 1 CAP PO SCH (08:55)
[2025-06-23] MEDS ORDERED: levoFLOXacin 250 MG TAB PO SCH (09:00)
[2025-06-23] MEDS: CHOLINE PO SCH (09:00)
[2025-06-23] MEDS ORDERED: ALBUTEROL 2.5 MG/3 ML NEB SOL NEB SCH (09:00)
[2025-06-23] MEDS: LUTEIN PO SCH (09:00)
[2025-06-23] MEDS: [UNRECOGNIZED DRUG - OTHER] PO SCH (09:00)
[2025-06-23 09:23] LABS: Anion Gap 9.8 mEq/L (5.0-15.0); BUN Blood Urea Nitrogen 7.0 mg/dL (7-18); Glucose Level 135.0 mg/dL (74-106); Potassium 3.8 mEq/L (3.5-5.1)
--- NOTE | 2025-06-23 12:50 | P.CNS ---
Date of Consult: 06/23/25 Reason for Consult: Abnormal chest x-ray hyponatremia Chief Complaint: Hyponatremia, PASTORA. History of Present Illness: Patient is 89 years of age daughter at the bedside apparently she lives in [facility] has a hybrid tester patient does have a history of asthma and uses nebulizers and inhalers albuterol there is no history of use of inhaled steroids has been sick for 2 weeks has been complaining of a cough has was seen by some physicians and appear in the hospital was found to have some cavitary changes in the left upper lobe possibly pneumonia in the left lower lobe and was very hyponatremic patient is on Lasix is back to her baseline apparently she choked on her food history of A-fib Allergies No Known Allergies Allergy (Unverified 06/21/25 23:18) Home Medications: Albuterol Neb [Proventil 0.083% Neb Soln] 3 ml NEB DAILY 06/22/25 Albuterol Sulfate [Proair Hfa] 2 puff IN BID 06/22/25 Apixaban [Eliquis] 2.5 mg PO BID 06/22/25 Choline/Lutein/Zeaxan/Astaxan [Maculapf Softgel] 1 each PO DAILY 06/22/25 Ferrous Sulfate [Iron] 325 mg PO DAILY 06/22/25 Furosemide [Lasix] 20 mg PO DAILY PRN 06/22/25 Lisinopril [Zestril] 5 mg PO DAILY 06/22/25 Metformin HCl 1,000 mg PO DAILY 06/22/25 Multivit-Min/Iron/Folic/Lutein [Centrum Silver Women Tablet] 1 each PO DAILY 06/22/25 Potassium Chloride 10 meq PO DAILY PRN 06/22/25 Vitamin B Complex 1 each PO DAILY 06/22/25 - Past Medical/Surgical History Diabetic: Yes -: Upper respiratory infection. -: Atrial fibrillation. -: Type 2 diabetes mellitus. -: Essential hypertension. -: Afib due to Pneumonia -: Obstructive airways disease -: Hysterctomy -: Back Sx 1990 -: Rt Ankle Adam 2006 -: Lt Hip Sx Replacement 2016 -: Rt Knee Replacement 2017 -: Rt Reverse Shoulder 2018 -: Lt Knee Replacement 2019 -: Cataract Removal & Lens Replacement 2020 - Family History Mother Medical History: Lung disease Notes: Emphysema Father Medical History: Stroke, Other (see notes) Notes: DM - Social History Alcohol use: No CD- Drugs: No Caffeine use: Yes Place of Residence: Home Review of Systems 10-point ROS is otherwise unremarkable Physical Examination Temp Pulse Resp BP Pulse Ox 97.9 F 74 18 125/78 96 06/23/25 07:00 06/23/25 09:00 06/23/25 09:00 06/23/25 09:00 06/23/25 09:00 General: Alert, Oriented x3 Respiratory: Clear to auscultation bilaterally Cardiovascular: Regular rate/rhythm, Normal S1 S2 Gastrointestinal: Normal bowel sounds, Soft and benign - Problems (1) Abnormal CT scan of lung Current Visit: Yes Status: Acute Plan: Patient is 89 years of age admitted with a choking spell daughter at the bedside history of obstructive airways disease apparently she uses albuterol on a as needed basis history of A-fib came in apparently choked on food was very hyponatremic I suspect is from her recent illness combination with the use of diuretics sodium is steadily improving with IV fluids also has some patchy changes in the left lower lobe may have underlying pneumonia can foreign exchange position clerk to p.o. 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
[2025-06-23 14:02] LABS: Anion Gap 10.2 mEq/L (5.0-15.0); BUN Blood Urea Nitrogen 7.0 mg/dL (7-18); Glucose Level 133.0 mg/dL (74-106); Potassium 4.2 mEq/L (3.5-5.1)
--- NOTE | 2025-06-23 15:33 | P.PN ---
Date of Service: 06/23/25 Subjective: Doing better. She is asking for physical therapy. Vitals been stable overnight. She denies fevers and chills Physical Examination - Vital Signs Temperature: 98.1 F Blood Pressure: 109/50 Pulse: 74 Respirations: 17 Pulse Ox (%): 94 - Studies Laboratory Data (last 24 hrs) 06/21/25 06/21/25 19:33 19:33 WBC 7.10 Hgb 12.1 Hct 34.7 L Plt Count 273 Sodium 118 L* Potassium 4.7 BUN 25 H Creatinine 0.74 Glucose 128 H Total Bilirubin 0.4 AST 44 H ALT 45 Alkaline Phosphatase 67 Assessment And Plan - Plan Physical examination General: Alert and oriented x 3, NAD, HEENT: Conjunctiva not pale, anicteric sclera Neck: Supple, no elevated JVD Heart: Heart sounds 1 and 2 normal, regular rhythm, normal rate, no pedal edema Lungs: Clear to auscultation bilaterally, adequate breath sounds bilaterally, no rhonchi or crackles. Abdomen: Soft, nondistended, nontender, normal bowel sounds. Extremities: No tenderness, no deformity Skin: Normal skin turgor, no rash, no nodules or ulcers. Neuro: No focal motor deficit. Normal speech. Psychiatry: Normal mood, no agitation. Diagnosis Hyponatremia Choking sensation/suspected dysphagia Aspiration pneumonia Chronic atrial fibrillation Pulmonary cystic mass. Diabetes mellitus type 2 Plan: Hyponatremia Sodium now climbing to 124 from 118 Home medications reviewed and the only medication that can cause hyponatremia is lisinopril however patient is only on a low-dose 2.5 mg daily. Hold lisinopril Check serum osmolality and urine osmolality Changed IV half NS to IV NS Nephrology consulted Monitor BMP. Hypomagnesemia Replace magnesium per protocol Choking sensation/suspected dysphagia Aspiration pneumonitis Appreciate pulmonary recommendation, Dr. Figueredo, now on [facility] Speech therapy evaluation Discontinue IV antibiotics and switch over to Augmentin for discharge Pulmonary cystic mass Pulmonary consult Chronic atrial fibrillation Continue Eliquis. Resume home dose of amiodarone 200 mg daily. Diabetes mellitus type 2 Blood sugar readings within normal range for now Continue metformin Disposition: DVT prophylaxis: On Eliquis Advanced directive: Full code
[2025-06-23] MEDS: UREA 15 GM POWDER PACKET PO SCH (16:00)
[2025-06-23] MEDS: FUROSEMIDE 40 MG/4 ML VIAL IV ONE (16:21)
[2025-06-23 17:58] LABS: UR POTASSIUM 20.0 mmol/L (20-40); UR SODIUM 88.0 mmol/L (27-287)
[2025-06-23] MEDS: ARFORMOTEROL TARTRATE 15 MCG/2 ML VIAL.NEB NEB SCH (19:00)
--- NOTE | 2025-06-23 19:37 | PN ---
See consult Note SRINIVASAN Voice ID: [id number] Report ID: [id number] [id number]
--- NOTE | 2025-06-23 19:52 | CON ---
Date of Consultation: 06/23/2025 Chief Complaint: Weakness. Reason For Consultation: Hyponatremia. History Of Present Illness: This is an 89-year-old woman with past medical history of atrial fibrill ation, diabetes mellitus, hypertension, who was recently diagnosed with upper respiratory syndrome an d prescribed the Z-Dom with no improvement. Patient presented to the ER complaining of weakness and a choking with eating. She feels she has multiple throat secretions. Upon presentation to the ER, h er sodium is 118. The patient follow with medical management specialist at [facility] and if she is seen for a kidn ey injury or hyponatremia. Home medication or SSRI. Initially, she was started on IV flu ids. Sodium improved to 126 and dropped. Nephrology consulted for further evaluation. Past Medical History: Hypertension and atrial fibrillation. Past Surgical History: None documented. Family History: Mother has COPD. Social History: Ex-smoker, quit long time ago. Review of Systems: Positive for cough, throat discomfort, nausea when eating. Physical Examination: Vital Signs: Temperature 97.6, pulse rate 69, blood pressure 148/70. General: Awake and alert. Lo oks frail and chronically ill. Neck: Supple. No elevated JVD. Heart: Regular rate and rhythm. Normal S1, S2. Chest: Has expiratory wheezes. Abdomen: Soft and nontender. Extremities: No edema. Laboratory Data: Sodium 121, potassium 4.4, BUN 12, creatinine 0.6. Medications: Include amiodarone, Augmentin, Eliquis, ferrous sulfate, Lasix, lisinopril. Assessment And Plan: 1. Euvolemic to hypervolemic hyponatremia, possibly from pneumonia. The patient not on hydrochloroth iazide or SSRI. Did not respond to IV fluids. We will DC IV fluids. Start on salt restriction, Las ix and salt tablet. 2. Encourage to increase in fluid intake, avoid saline. Her hyponatremia possibly SIADH from underly ing lung mass/pneumonia. 3. Pneumonia. Continue antibiotic and oxygen. Pulmonary following. 4. Lung mass. Dr. Rodas following. 5. Diabetes mellitus, blood sugars controlled. Continue insulin. Thanks for allowing me to participate in patient's care. Total time spent 55 minutes including docum entation, reviewing labs, and placing orders. IASIAS/ANI Voice ID: [id number] Report ID: [id number]
[2025-06-23] MEDS: AMOX/K CLAV 875 MG TAB PO SCH (21:23)
[2025-06-23] MEDS: SODIUM CHLORIDE 1 GM TAB PO SCH (21:24)
[2025-06-23] MEDS: GUAIFENESIN/DM 5 ML UCUP PO PRN (21:46)
[2025-06-23] MEDS: MELATONIN 5 MG TABLET PO PRN (21:46)
[2025-06-23 22:08] LABS: Anion Gap 9.7 mEq/L (5.0-15.0); BUN Blood Urea Nitrogen 27.0 mg/dL (7-18); Glucose Level 122.0 mg/dL (74-106)
[2025-06-23 22:10] LABS: Potassium 4.7 mEq/L (3.5-5.1)
[2025-06-24 06:01] LABS: Absolute Lymphocytes (CBC) 1.4 K/uL (0.7-4.9); Hematocrit 36.5 % (36.0-45.0); Hemoglobin 12.9 g/dL (12.0-15.0); MCH 30.6 pg (27.0-35.0); MCHC 35.4 g/dL (32.0-36.0); MCV 86.4 fL (80-100); MPV 6.9 fL (7.6-11.3); Nucleated RBC Absolute Count 0.0 (0-0); Nucleated Red Blood Cells % 0.1 % (0-0); RBC Red Blood Cell Count 4.23 M/uL (3.86-4.86); White Blood Count 6.10 thou/uL (4.3-10.9)
[2025-06-24 06:27] LABS: ALT/SGPT 35.0 U/L (13-56); Albumin 2.8 g/dL (3.4-5.0); Albumin/Globulin Ratio 0.8 (1.1-1.8); Alkaline Phosphatase 58.0 U/L (45-117); Anion Gap 10.1 mEq/L (5.0-15.0); BUN Blood Urea Nitrogen 18.0 mg/dL (7-18); Globulin 3.6 g/dL (2.3-3.5); Glucose Level 93.0 mg/dL (74-106)
[2025-06-24 06:28] LABS: AST/SGOT 33.0 U/L (15-37); Potassium 4.1 mEq/L (3.5-5.1)
[2025-06-24] MEDS: FUROSEMIDE 20 MG TABLET PO SCH (08:07)
[2025-06-24 08:40] LABS: Thyroid Stimulating Hormone 3.36 uIU/mL (0.358-3.740); Uric Acid 1.6 mg/dL (2.6-6.0)
[2025-06-24] MEDS: SODIUM CHLORIDE 1 GM TAB PO SCH (14:00)
--- NOTE | 2025-06-24 14:58 | PN ---
Date of Progress Note: 06/24/2025 Subjective: Sodium dropped to 118 last night, increased to 121. We will increase salt tab to 2 g t. i.d. If no improvement in her sodium level, then we will start the patient on tolvaptan tomorrow. Objective: Vital Signs: Temperature 97.5, pulse rate 68, blood pressure 128/60. General: Awake and alert. Looks frail. Neck: Supple. No elevated JVD. Heart: Regular rate and rhythm. Normal S1, S2. Chest: Clear to auscultation bilaterally. No rales or wheezes. Abdomen: Soft and nontender. Extremities: No edema. Laboratory Data: Sodium 121, potassium 4.1, BUN 18, creatinine 0.8. Assessment/plan: This is an 89-year-old woman with past medical history of diabetes, hypertension an d atrial fibrillation who was admitted for shortness of breath and throat discomfort. The patient fo und to have sodium of 118 that initially improved to IV fluid and dropped down to 123. IV fluids dis continued. Started on salt tablet. Sodium remained at 121. As per old record, patient has mild his tory of hyponatremia started back in 2023, sodium level being between 130 and 135. 1. 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 Did not respond to an IV fluid. Continue salt tablet, we will increase to 2 g t.i.d. Continue ure-Na and fluid restri ction. If no improvement in her sodium level, give tolvaptan dose tomorrow. 2. Diabetes mellitus. Blood sugar control. 3. Pneumonia. Continue antibiotics. 4. Cystic lung lesion as per patient has been stable since 2023. Dr. Rodas following. Thank you for allowing me to participate in patient's care. Total time spent 55 minutes including do cumentation, reviewing labs and placing orders. ISAIAS/ANI Voice ID: [id number] Report ID: [id number]
--- NOTE | 2025-06-24 16:06 | P.PN ---
Date of Service: 06/24/25 Subjective: Awaiting blood work from this morning. Denies fevers and chills. Wants to walk around the hallways with nursing staff. Physical Examination - Vital Signs Temperature: 98.1 F Blood Pressure: 109/50 Pulse: 74 Respirations: 17 Pulse Ox (%): 94 - Studies Laboratory Data (last 24 hrs) 06/21/25 06/21/25 19:33 19:33 WBC 7.10 Hgb 12.1 Hct 34.7 L Plt Count 273 Sodium 118 L* Potassium 4.7 BUN 25 H Creatinine 0.74 Glucose 128 H Total Bilirubin 0.4 AST 44 H ALT 45 Alkaline Phosphatase 67 Assessment And Plan - Plan Physical examination General: Alert and oriented x 3, NAD, HEENT: Conjunctiva not pale, anicteric sclera Neck: Supple, no elevated JVD Heart: Heart sounds 1 and 2 normal, regular rhythm, normal rate, no pedal edema Lungs: Clear to auscultation bilaterally, adequate breath sounds bilaterally, no rhonchi or crackles. Abdomen: Soft, nondistended, nontender, normal bowel sounds. Extremities: No tenderness, no deformity Skin: Normal skin turgor, no rash, no nodules or ulcers. Neuro: No focal motor deficit. Normal speech. Psychiatry: Normal mood, no agitation. Diagnosis Hyponatremia Choking sensation/suspected dysphagia Aspiration pneumonia Chronic atrial fibrillation Pulmonary cystic mass. Diabetes mellitus type 2 Plan: Hyponatremia Sodium now 121 Home medications reviewed and the only medication that can cause hyponatremia is lisinopril however patient is only on a low-dose 2.5 mg daily. Hold lisinopril Check serum osmolality and urine osmolality Increase salt tablet to twice daily per nephrology Appreciate nephrology recommendation Monitor BMP. Hypomagnesemia Replace magnesium per protocol Choking sensation/suspected dysphagia Aspiration pneumonitis Appreciate pulmonary recommendation, Dr. Figueredo, now on [facility] Speech therapy evaluation Discontinue IV antibiotics and switch over to Augmentin for discharge Pulmonary cystic mass Pulmonary consult Chronic atrial fibrillation Continue Eliquis. Resume home dose of amiodarone 200 mg daily. Diabetes mellitus type 2 Blood sugar readings within normal range for now Continue metformin Disposition: DVT prophylaxis: On Eliquis Advanced directive: Full code
[2025-06-24 20:42] LABS: Anion Gap 9.2 mEq/L (5.0-15.0); BUN Blood Urea Nitrogen 26.0 mg/dL (7-18); Glucose Level 160.0 mg/dL (74-106); Potassium 4.2 mEq/L (3.5-5.1)
[2025-06-25 03:40] VITALS: BMI 20.9
[2025-06-25 06:43] LABS: Absolute Lymphocytes (CBC) 1.1 K/uL (0.7-4.9); Hematocrit 35.5 % (36.0-45.0); Hemoglobin 12.0 g/dL (12.0-15.0); MCH 29.6 pg (27.0-35.0); MCHC 33.9 g/dL (32.0-36.0); MCV 87.4 fL (80-100); MPV 7.1 fL (7.6-11.3); Nucleated RBC Absolute Count 0.0 (0-0); Nucleated Red Blood Cells % 0.0 % (0-0); RBC Red Blood Cell Count 4.06 M/uL (3.86-4.86); White Blood Count 6.10 thou/uL (4.3-10.9)
--- NOTE | 2025-06-25 07:39 | P.PN ---
Date of Service: 06/25/25 Subjective: Awaiting blood work from this morning. Denies fevers and chills. Wants to walk around the hallways with nursing staff. Physical Examination - Vital Signs Temperature: 98.1 F Blood Pressure: 109/50 Pulse: 74 Respirations: 17 Pulse Ox (%): 94 - Studies Laboratory Data (last 24 hrs) 06/21/25 06/21/25 19:33 19:33 WBC 7.10 Hgb 12.1 Hct 34.7 L Plt Count 273 Sodium 118 L* Potassium 4.7 BUN 25 H Creatinine 0.74 Glucose 128 H Total Bilirubin 0.4 AST 44 H ALT 45 Alkaline Phosphatase 67 Assessment And Plan - Plan Physical examination General: Alert and oriented x 3, NAD, HEENT: Conjunctiva not pale, anicteric sclera Neck: Supple, no elevated JVD Heart: Heart sounds 1 and 2 normal, regular rhythm, normal rate, no pedal edema Lungs: Clear to auscultation bilaterally, adequate breath sounds bilaterally, no rhonchi or crackles. Abdomen: Soft, nondistended, nontender, normal bowel sounds. Extremities: No tenderness, no deformity Skin: Normal skin turgor, no rash, no nodules or ulcers. Neuro: No focal motor deficit. Normal speech. Psychiatry: Normal mood, no agitation. Diagnosis Hyponatremia Choking sensation/suspected dysphagia Aspiration pneumonia Chronic atrial fibrillation Pulmonary cystic mass. Diabetes mellitus type 2 06/25 - Nephrology dosing with tolvaptan, if sodium is above 130 can discharge home - Sodium tablets twice daily - Follow-up pulmonology for pulmonary cystic mass / lesion - Augmentin at discharge for aspiration pneumonitis Plan: Hyponatremia Sodium now improved to 123 Nephrology dosing with tolvaptan Hold lisinopril Urine and serum osmole's pending Increase salt tablet to twice daily per nephrology Appreciate nephrology recommendation Hypomagnesemia Replace magnesium per protocol Choking sensation/suspected dysphagia Aspiration pneumonitis Appreciate pulmonary recommendation, Dr. Figueredo, now on [facility] Speech therapy evaluation Discontinue IV antibiotics and switch over to Augmentin for discharge Pulmonary cystic mass Pulmonary consult Chronic atrial fibrillation Continue Eliquis. Resume home dose of amiodarone 200 mg daily. Diabetes mellitus type 2 Blood sugar readings within normal range for now Continue metformin Disposition: DVT prophylaxis: On Eliquis Advanced directive: Full code
[2025-06-25 08:10] LABS: ALT/SGPT 30.0 U/L (13-56); AST/SGOT 22.0 U/L (15-37); Albumin 2.8 g/dL (3.4-5.0); Albumin/Globulin Ratio 0.8 (1.1-1.8); Alkaline Phosphatase 58.0 U/L (45-117); Anion Gap 10.9 mEq/L (5.0-15.0); BUN Blood Urea Nitrogen 16.0 mg/dL (7-18); Globulin 3.4 g/dL (2.3-3.5); Glucose Level 94.0 mg/dL (74-106); Potassium 3.9 mEq/L (3.5-5.1)
[2025-06-25 10:46] VITALS: O2SAT 94
--- NOTE | 2025-06-25 13:36 | P.DS ---
Admission Date: 06/21/25 Discharge Date: 06/25/25 Disposition: ROUTINE DISCHARGE Discharge Condition: GOOD Reason for Admission: Hyponatremia, PASTORA. Brief History of Present Illness: Patient is an 89-year-old female with past medical history of atrial fibrillation currently on Eliquis 2.5 mg p.o. twice daily, recently diagnosed upper respiratory infection and completed Z-Odm, started the Z-Dom last week Thursday, and completed on Thursday, type 2 diabetes mellitus, essential hypertension. Patient brought to ER today complaining of choking after eating, and states she feels like there is an item of food stuck in her throat. Patient denies of any chest pain, shortness of breath, or abdominal pain. On admission assessment, patient with increased bilateral pulmonary congestion, nonproductive cough. Patient bilateral lungs with increased pulmonary congestion, with some crackles and rhonchi which appears to have been the residual from her recent diagnosis of upper respiratory infection. Patient with left shift of 77.1, norm al WBC. BUN 25. Incidental finding of sodium 118. Course in ER: (1)CT soft tissue neck without contrast. Impression: No suspicious masses or adenopathy throughout the neck. Chronic appearing type I odontoid fracture, with posterior angulation and retrolisthesis and dens fragment. (2) CT thorax without contrast. Impression: Patchy airspace opacities in the dependent left lower lobe. These are concerning for pneumonitis. Cystic left upper lobe pleural-base mass measuring up to 5.6 cm, could be postinfectious although neoplastic etiology cannot be entirely excluded. Correlation with prior imaging if available is recommended. Pulmonary consultation is also recommended. Hospital Course: Physical Examination - Vital Signs Temperature: 98.1 F Blood Pressure: 109/50 Pulse: 74 Respirations: 17 Pulse Ox (%): 94 - Studies Laboratory Data (last 24 hrs) 06/21/25 06/21/25 19:33 19:33 WBC 7.10 Hgb 12.1 Hct 34.7 L Plt Count 273 Sodium 118 L* Potassium 4.7 BUN 25 H Creatinine 0.74 Glucose 128 H Total Bilirubin 0.4 AST 44 H ALT 45 Alkaline Phosphatase 67 Assessment And Plan - Plan Physical examination General: Alert and oriented x 3, NAD, HEENT: Conjunctiva not pale, anicteric sclera Neck: Supple, no elevated JVD Heart: Heart sounds 1 and 2 normal, regular rhythm, normal rate, no pedal edema Lungs: Clear to auscultation bilaterally, adequate breath sounds bilaterally, no rhonchi or crackles. Abdomen: Soft, nondistended, nontender, normal bowel sounds. Extremities: No tenderness, no deformity Skin: Normal skin turgor, no rash, no nodules or ulcers. Neuro: No focal motor deficit. Normal speech. Psychiatry: Normal mood, no agitation. Diagnosis Hyponatremia Choking sensation/suspected dysphagia Aspiration pneumonia Chronic atrial fibrillation Pulmonary cystic mass. Diabetes mellitus type 2 Plan: Hyponatremia Sodium now 121 Home medications reviewed and the only medication that can cause hyponatremia is lisinopril however patient is only on a low-dose 2.5 mg daily. Hold lisinopril Check serum osmolality and urine osmolality Increase salt tablet to twice daily per nephrology Appreciate nephrology recommendation Monitor BMP. Hypomagnesemia Replace magnesium per protocol Choking sensation/suspected dysphagia Aspiration pneumonitis Appreciate pulmonary recommendation, Dr. Figueredo, now on [facility] Speech therapy evaluation Discontinue IV antibiotics and switch over to Augmentin for discharge Pulmonary cystic mass Pulmonary consult Chronic atrial fibrillation Continue Eliquis. Resume home dose of amiodarone 200 mg daily. Diabetes mellitus type 2 Blood sugar readings within normal range for now Continue metformin Disposition: DVT prophylaxis: On Eliquis Advanced directive: Full code Vital Signs/Physical Exam: Temp Pulse Resp BP Pulse Ox 97.5 F 81 18 182/75 H 95 06/25/25 12:00 06/25/25 12:00 06/25/25 12:00 06/25/25 12:00 06/25/25 12:00 Laboratory Data at Discharge: WBC 6.10 thou/uL (4.3-10.9) 06/25/25 06:07 Hgb 12.0 g/dL (12.0-15.0) 06/25/25 06:07 Hct 35.5 % (36.0-45.0) L 06/25/25 06:07 Plt Count 272 thou/uL (152-406) 06/25/25 06:07 Sodium 130 mEq/L (136-145) L D 06/25/25 06:07 Potassium 3.9 mEq/L (3.5-5.1) 06/25/25 06:07 BUN 16 mg/dL (7-18) 06/25/25 06:07 Creatinine 0.68 mg/dL (0.55-1.02) 06/25/25 06:07 Glucose 94 mg/dL (74-106) 06/25/25 06:07 Uric Acid 1.6 mg/dL (2.6-6.0) L 06/24/25 07:36 Phosphorus 2.4 mg/dL (2.5-4.9) L 06/23/25 05:25 Magnesium 1.5 mg/dL (1.6-2.4) L 06/23/25 05:25 Total Bilirubin 0.4 mg/dL (0.2-1.0) 06/25/25 06:07 AST 22 U/L (15-37) 06/25/25 06:07 ALT 30 U/L (13-56) 06/25/25 06:07 Alkaline Phosphatase 58 U/L (45-117) 06/25/25 06:07 Home Medications: Albuterol Neb [Proventil 0.083% Neb Soln] 3 ml NEB DAILY 06/22/25 Albuterol Sulfate [Proair Hfa] 2 puff IN BID 06/22/25 Apixaban [Eliquis] 2.5 mg PO BID 06/22/25 Choline/Lutein/Zeaxan/Astaxan [Maculapf Softgel] 1 each PO DAILY 06/22/25 Ferrous Sulfate [Iron] 325 mg PO DAILY 06/22/25 Lisinopril [Zestril] 5 mg PO DAILY 06/22/25 Metformin HCl 1,000 mg PO DAILY 06/22/25 Multivit-Min/Iron/Folic/Lutein [Centrum Silver Women Tablet] 1 each PO DAILY 06/22/25 Potassium Chloride 10 meq PO DAILY PRN 06/22/25 Vitamin B Complex 1 each PO DAILY 06/22/25 Amox/Clavulanate [Augmentin 875-125 Tab*] 875 mg PO BID 5 Days #10 tab 06/25/25 Furosemide [Lasix] 20 mg PO DAILY PRN 30 Days #30 tab 06/25/25 Sodium Chloride Tab [Sodium Chloride*] 2 gm PO BID 30 Days #60 tab 06/25/25 Urea [Ure-Na] 15 gm PO DAILY 30 Days #1 box 06/25/25 New Medications: Amox/Clavulanate [Augmentin 875-125 Tab*] 875 mg PO BID 5 Days #10 tab Furosemide [Lasix] 20 mg PO DAILY PRN 30 Days #30 tab PRN Reason: Diff breathing Sodium Chloride Tab [Sodium Chloride*] 2 gm PO BID 30 Days #60 tab Urea [Ure-Na] 15 gm PO DAILY 30 Days #1 box Followup: OOT,OOT [Primary Care Provider] -
[2025-06-25 14:30] LABS: Anion Gap 11.9 mEq/L (5.0-15.0); BUN Blood Urea Nitrogen 30.0 mg/dL (7-18); Glucose Level 138.0 mg/dL (74-106); Potassium 3.9 mEq/L (3.5-5.1)
[2025-06-25 17:50] VITALS: BP 116/59; TEMP 97.4
[2025-06-25] MEDS ORDERED: SODIUM CHLORIDE 1 GM TAB PO SCH (21:00)
== END 2025-06-25 15:36 | disposition home or self-care (01) | DRG 640 ==
LOC: ER 18:47 → ERHOLD 22:37 → 3RD-ICU 06-22 01:03 → 2ND 06-23 11:06
PROVIDERS: ADMIT Internal Medicine; ATTEND Family Medicine
DX: E87.1 Hypo-osmolality and hyponatremia (principal); J18.9 Pneumonia, unspecified organism; J69.0 Pneumonitis due to inhalation of food and vomit; N18.6 End stage renal disease; N17.9 Acute kidney failure, unspecified; I48.20 Chronic atrial fibrillation, unspecified; R13.10 Dysphagia, unspecified; R09.89 Other specified symptoms and signs involving the circulatory and respiratory systems; E83.42 Hypomagnesemia; J98.4 Other disorders of lung; Z99.2 Dependence on renal dialysis; Z79.01 Long term (current) use of anticoagulants; Z79.51 Long term (current) use of inhaled steroids; Z79.899 Other long term (current) drug therapy; Z79.84 Long term (current) use of oral hypoglycemic drugs; Z90.710 Acquired absence of both cervix and uterus; Z96.642 Presence of left artificial hip joint; Z96.653 Presence of artificial knee joint, bilateral; Z98.49 Cataract extraction status, unspecified eye; Z87.891 Personal history of nicotine dependence; E11.22 Type 2 diabetes mellitus with diabetic chronic kidney disease
CPT/HCPCS: 36415; 70490; 71250; 80048; 80053; 81001; 82570; 82947; 83735; 83930; 83935; 84100; 84132; 84300; 84443; 84550; 85025; 94640; 96361; 96374; 96375; 99285; J1610; J1938; J2470; J2543; J2765; J3360; J3475; J7030; J7040; J7605; J7608; J7613; J7644